=== PATIENT | male | born 1970 | race Caucasian/White ===

== ENCOUNTER 2017-07-19 17:03 | Emergency (ER) | payer MEDICAID ==
[~2017-07-19] VITALS: Ht 162.6 cm; Wt 89.8 kg
[~2017-07-19 17:03] MED LIST: METHOCARBAMOL500 M1 PO; MOTRIN600 M1 PO; PREDNISONE 20MG20 MG PO
[2017-07-19 17:10] VITALS: BP 140/88
--- NOTE | 2017-07-19 17:28 | Emergency Room Report ---
History of Present Illness Time Seen by 1727 Presenting Problem in Triage Pt arrived:Walked Presenting Problem:SENT PER SOFTWARE TEST AND VALIDATION ENGINEER FOR EVAL. PT STATES WAS SUPPOSED TO HAVE DIAGNOSTIC A1C DRAWN LAST WEEK AND "NEVER GOT AROUND TO IT". FSBS READS "HI". FAMILY HISTORY OF DM Onset of symptoms date/time:/ or onset unknown for:MEDICAL HX UNKNOWN Treatment Prior to Arrival: BOILER/CHILLER OPERATOR Provided by: Sepsis Risk Assessment: Temp: 97.8 B/P: 140/88 MAP: 105 Pulse: 92 Resp: 18 Recent fever? N Clinical Suspician of Infection? N Mental Status: 1 - Regular (Normal Baseline) Sepsis Risk:Low Sepsis Risk Have you (or family members/close friends) recently traveled outside the [place]? N If Yes, where/when: Have you had exposure to infectious disease within the past month? TB? Other? Specify: Comment The patient is sent in by Jamie Zimmerman due to an elevated blood sugar. It was too high to register on the Accu-Chek machine in the office. He complains of polyuria and polydipsia for 3 weeks. He has nausea. No prior history of diabetes. He is on no medications. He otherwise does not feel ill. ALLERGIES Coded Allergies: aspirin (Mild, 07/19/17) History Medical History General Angina: No PR: No Hypertension? No Hyperlipidemia? No CHF? No COPD? No Asthma? No CVA? No Seizures? No Diabetes? No GB Disease: No MRSA? No HIV? No TB? No Cancer? No Immunization Hx Ped.Immunizations UTD Yes DT/Tetanus T Surgical Hx Previous Surgery?N Social History Smoking Hx Smoker: Unknown if Ever Smoked Tobacco: Yes Type Chew Packs/day < 1 Pack Are you/the child exposed to second-hand smoke: No Alcohol Alcohol: No Review of Systems All Other Systems Reviewed and Negative Constitutional see HPI, denies fever Gastrointestinal nausea, denies vomiting Genitourinary frequency. Physical Exam Vital Signs Vital Signs Date Time Temp Pulse Resp B/P Pulse O2 O2 Flow FiO2 Ox Delivery Rate 07/19 1904 97.8 92 18 140/88 99 07/19 1710 97.8 92 18 140/88 99 General Appearance no apparent distress Eye Exam - bilateral eye normal exam, bilateral eye PERRL, bilateral eye EOMI Ear, Nose, Throat hearing grossly normal, normal ENT inspection Neck normal inspection, non-tender, supple, full range of motion Respiratory Status Yes: trachea midline, chest symmetrical. No: respiratory distress. Lung Sounds bilateral: normal breath sounds, lungs clear. Cardiovascular normal exam, regular rate/rhythm, no peripheral edema, no gallop, no JVD, no murmur, no rub, normal peripheral pulses Gastrointestinal normal bowel sounds, normal exam, non tender, soft, no organomegaly Extremities normal inspection Neurologic alert, oriented x 3 Mental status normal mood/affect Skin intact, normal color, warm/dry Medical Decision Making LABS/Meds/Orders Pt receiving controlled substance in ED? No Results/Orders Laboratory Tests 07/19/17 1739: VBG pH 7.38, VBG Total CO2 Pending, VBG O2 Sat (Calc) 97 H, VBG Base Excess - 1.9, Mixed VBG pCO2 40.0 L, Mixed VBG pO2 95.0 H, Mixed VBG HCO3 23.2 07/19/17 1720: Urine Color YELLOW, Urine Appearance CLEAR, Urine pH 5.5, Ur Specific Roscoe <= 1.005, Urine Protein NEGATIVE, Urine Ketones NEGATIVE, Urine Blood NEGATIVE, Urine Nitrate NEGATIVE, Urine Bilirubin NEGATIVE, Urine Urobilinogen 0.2, Ur Leukocyte Esterase NEGATIVE, Urine RBC NONE, Urine WBC OCC, Ur Squamous Epith Cells NONE, Urine Bacteria TRACE, Urine Glucose 3+ H 07/19/17 1715: Hemoglobin A1c 11.8 H 07/19/17 1715: Sodium 128 L, Potassium 4.5, Chloride 94 L, Carbon Dioxide 24, BUN 17, Creatinine 1.2, Estimated Creat Clear 99, Estimated GFR (MDRD) 65, Glucose 637 * H, Calcium 8.9, Total Bilirubin 0.3, AST 133 H, ALT 369 *H, Alkaline Phosphatase 251 H, Total Protein 8.0, Albumin 3.4, Globulin 4.6 H, Albumin/ Globulin Ratio 0.7 L, WBC 6.9, RBC 5.01, Hgb 14.1, Hct 45.7, MCV 91.2, RDW 13.0 , Plt Count 220, MPV 8.7, Gran % 71.3, Gran # 4.9, Lymphocytes % 22.3, Monocytes % 5.5, Eosinophils % 0.6, Basophils % 0.3, Lymphocytes # 1.5, Monocytes # 0.4, Eosinophils # 0.0, Basophils # 0.0, PUBS MCHC 30.8 L, MCH 28.1, Acetone Level NONE DETECTED Current Medication Orders Sig/Na Start time Last Medication Dose Route Stop Time Status Admin Diagnostic Test (Pha) 1 EACH W/MEALS&HS 07/19 2100 DCD FS 09/17 2059 Insulin Human [rDNA See Dose W/MEALS&HS 07/19 2100 DCD origin] Insts (1) SC Insulin Human [rDNA 0 .STK-MED ONE 07/19 1837 DC origin] SC Insulin Human [rDNA 0 .STK-MED ONE 07/19 1834 DC origin] SC Influenza Virus 0.5 ML PRN PRN 07/19 1830 DCD Vaccine Quadrival IM Nicotine 21 MG DAILYP PRN 07/19 1830 DCD TD Sodium Chloride 1,000 ML .Q6H40M 07/19 1830 DCD IV Sodium Chloride 10 ML PRN PRN 07/19 1830 DCD IV Insulin Human Regular 5 UNITS ONCE ONE 07/19 1815 DC IVP 07/19 181 Sodium Chloride 1,000 ML .STK-MED ONE 07/19 1716 DC IV Sodium Chloride 10 ML PRN PRN 07/19 171 DCD IV 07/20 171 Sodium Chloride 1,000 ML .Q1H1M 07/19 171 DC IV 07/19 181 Sodium Chloride 10 ML PRN PRN 07/19 171 DCD IV 07/20 171 Dose Instructions: (1)Insulin Human [rDNA origin]: SEE ADMIN CRITERIA FOR HI INTENSITY SS Orders Procedure Date/time Status DIET-1999 CALORIE ADA 07/20 B Active BASIC METABOLIC PROFILE 07/20 0600 Active Decision to admit 07/19 180 Active VENOUS BLOOD GAS 07/19 1718 Active IV SALINE LOCK 07/19 1714 Active URINALYSIS/COMPLETE 07/19 1714 Complete GLYCOHEMOGLOBIN (A1C) 07/19 1714 Complete GLUCOSE, RANDOM 07/19 1714 Complete CBC WITH AUTO DIFF 07/19 1714 Complete CHEM 12 PROFILE 07/19 1714 Complete Acetone, Serum 07/19 1714 Complete ADMIT PATIENT 07/19 UNK Active VITAL SIGNS 07/19 UNK Active POM NURSE CAMRON HOSE ORDER 07/19 UNK Active IV SALINE LOCK 07/19 UNK Active RECORD I & O 07/19 UNK Active CODE STATUS 07/19 UNK Active PATIENT ACTIVITY ORDER 07/19 UNK Active Progress - 6:00 PM: I have discussed the case with Dr. Hurley for Dr. Conteh who agrees to admit the patient to the hospital. We discussed the patient's clinical information, including history, exam, laboratory and radiology results and ED course. Per hospital procedure, I will write temporary bridge inpatient orders on the patient. Specific orders requested by the admitting physician: Regular insulin 5 units IV, admit on high-dose sliding scale insulin, continue IV fluids. 6:55 PM: After initially agreeing to admission, the patient now says that he cannot stay and will sign out AGAINST MEDICAL ADVICE. I contacted Dr. Hurley. He requests the patient be started on glimepiride 2 mg twice a day and metformin 500 mg twice a day and follow-up with his primary care provider within a couple of days. Departure Departure Disposition Against Medical Advice Clinical Impression Primary Impression: Hyperglycemia Secondary Impressions: Elevated liver enzymes, New onset type 2 diabetes mellitus Condition STABLE Patient Instructions DI for Diabetes Type 2, DI for Hyperglycemia -- Adult Additional Instructions Drink plenty of fluids. See your primary care provider within the next couple of days. Prescriptions Current Visit Scripts Glimepiride (Amaryl 2MG Tablet) 2 MG PO BID #20 TAB Metformin HCl (Metformin) 500 MG PO BID #20 TAB ED Critical Care Critical Care No at 1924
[2017-07-19 17:31] LABS: HEMOGLOBIN 14.1 g/dL (14.1-18.0); LYMPH # 1.5 K/mm3 (0.7-4.5); LYMPH % 22.3 % (10-50)
[2017-07-19 17:34] LABS: URINE BILIRUBIN - DIPSTICK NEGATIVE (NEG); URINE BLOOD NEGATIVE (NEG)
[2017-07-19 17:40] LABS: VENOUS ABE -1.9 MMOL/L (-2.4-2.3)
--- OUTSIDE RECORDS SUMMARY | 2017-07-19 17:44 | External Medical Summary Rpt | CCD ---
Author Author , YANA Organization YANA Address Unknown Phone [email or web address] Care Team Providers Care Social Science Teacher Name Role Phone CRISTOBAL ALL, CRISTOBAL ALL Unavailable Unavailable [facility] Unavailable Unavailable SERVICE, [employer] Unavailable Unavailable SERVICE, [employer], Unavailable Unavailable [facility] CHATTA SHEYLA, CHATTA Unavailable Unavailable SHEYLA CHATTA SHEYLA, CHATTA Unavailable Unavailable SHEYLA [facility] Unavailable Unavailable [facility], [facility] Unavailable AND REHA, [facility] ELIZABET MARGARET, Unavailable Unavailable ELIZABET MARGARET ECKERLINE JR SUNI, Unavailable Unavailable ECKERLINE JR SUNI FRYMAN EUG, FRYMAN Unavailable Unavailable EUG ANGEL GELACIO, ANGEL Unavailable Unavailable GELACIO [facility] Unavailable Unavailable INC, [facility], Unavailable Unavailable [facility]ERAS Unavailable Unavailable [facility] Unavailable Unavailable RENZO MORAIMA II KATIE, MORAIMA Unavailable Unavailable II KATIE [facility] Unavailable Unavailable [facility], [facility] Unavailable [facility], [facility] Unavailable Unavailable [facility], [facility] Unavailable [facility]available [facility]ANCE SERV, [employer] [facility] AYSHA SMITH, AYSHA Unavailable Unavailable JR SARAH SMITH, AYSHA Unavailable Unavailable JR SMITH [facility], Unavailable Unavailable [facility], Unavailable Unavailable [facility], [facility] CHERYL BIA, CHERYL Unavailable Unavailable [facility] SCHUL[facility]AD CAM, Unavailable Unavailable [facility] SCIFRES ANG, SCIFRES Unavailable Unavailable ANG SCIFRES AN[facility], SCIFRES Unavailable Unavailable [facility] STONE ESTRADA, STONE ESTRADA Unavailable Unavailable TRUE BERNARDO, TRUE BERNARDO Unavailable Unavailable [facility], Unavailable Unavailable [facility] Un[facility] # Unavailable Unavailable [id number], [facility] # [id number] WALKER FOR, WALKER Unavailable Unavailable FOR Purpose Continuity of Care Document - 11-23-2010 through 2016 Problems Code Diagnosis DOS Provider Status [id number] REGULAR 06-03-2016 SCIFRCHINMAY ANG ASTIGMATISM BILATERAL H524 PRESBYOPIA 06-03-2016 [facility] ANG M545 LOW BACK 01-18-2016 [facility] PAIN [facility] N62 HYPERTROPHY 12-15-2015 [facility] OF BREAST [facility] N63 UNSPECIFIED 12-09-2015 [facility] N644 MASTODYNIA 12-09-2015 [facility] [id number] OTH FX BASE 11-05-2015 [facility] SUBSQT ENC FX ROUTINE HEALING [id number] CONTUS LAC 11-05-2015 [facility] C[facility]OS[facility] LOC UNS DUR INIT [id number] OTH 10-07-2015 [facility] SKULL INIT ENC CLOSED FRACTURE [id number] UNS 10-07-2015 [facility] SK[facility] INITIAL ENC FOR CLOS FRACTURE [id number] TRAUMATIC 10-07-2015 [facility] HEM[facility] W/O LOC INITIAL M2019EV UNS OCC OTH 10-07-2015 [facility] [facility] MV INJ NT ACC INIT Z720 TOBACCO USE 10-07-2015 [facility] [id number] ABRASION 2015 [facility] OTHER PART PHYSICIANS OF HEAD GROUP INITIAL ENCOUNTER [id number] CONCUSSION 2015 [facility] W/LOC UNS PHYSICIANS DURATION GROUP INITIAL ENCOUNTER G8911 ACUTE PAIN 10-02-2015 [facility] TRAUMA SERVICE I6200 NONTRAUMATI 10-02-2015 [facility] HEMORRHAGE SERVICE UNSPECIFIED U31756 PAIN IN 10-02-2015 [facility] LEFT HAND [facility] M7989 OTHER 10-02-2015 [facility] SPECIFIED SERV SOFT TISSUE FOUNDATION DISORDERS R51 HEADACHE 10-02-2015 [facility] [id number] FRACTURE 10-02-2015 [facility] MEDICAL INITIAL IMAGING ASS ENC CLOS FRACTURE [id number] TRAUMAT 10-02-2015 [facility] UNS PLLC W/O LOC INITIAL [id number] TRAUMATIC 10-02-2015 [facility] HEM[facility] W/LOC 30 MIN/LESS INIT [id number] TRAUMATIC 10-02-2015 [facility] HEMORRHAGE IMAGING ASS W/LOC UNS DUR INIT Z23 ENCOUNTER 10-02-2015 [facility] [place] N [address] PAIN IN 06-03-2014 [facility]INT, N EMERGENCY SHOULDER PHYS REGION 73798 UNSPEC 06-03-2014 [facility] DISORDERS N EMERGENCY BURSAE&TEND PHYS ONS SHOULDER REGION 7231 CERVICALGIA 04-07-2014 [facility] 7235 TORTICOLLIS 04-07-2014 JARAMILLO RENZO , UNSPECIFIED 8470 NECK SPRAIN 04-07-2014 [facility] 89047 OLECRANON 02-28-2012 CHAT[facility] SHEYLA BURSITIS 7242 LUMBAGO 02-08-2012 AYSHA METCALF SARAH 96611 CONTUSION 02-08-2012 AYSHA METCALF OF [place] SARAH E9270 OVEREXERTIO 02-08-2012 AYSHA METCALF N FROM [facility] SUDDEN STRENUOUS MOVEMENT 32727 NAUSEA WITH 03-15-2011 [facility] 9779 POISONING 03-15-2011 [facility] UNSPECIFIED [facility] AMBULANCE DRUG/MEDICI SERV NAL SUBSTANCE 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 7244 THORACIC/DEONTE 02-09-2011 [facility] MBOSACRAL H SLEEP AND NEURITIS/RA REHA DICULITIS UNSPEC Medications Na ND Rx Da Fi Fi Am Da Di Ph RX Ph St me C No te ll ll ou ys ag ar # ys at rm s nt no ma ic us Or Da si cy ia de te s n re d CI 65 03 06 5 15 30 CA 10 MC Ac TA 16 -0 -2 .0 RR 70 CO ti LO 20 2- 9- 00 IN 88 Y ve MT 05 20 20 GT 4 SA AM 45 11 11 ON ND [address] D R UG 40 MG TA BL ET TR 50 03 06 5 30 30 CA 10 MC Ac AZ 11 -0 -2 .0 RR 70 CO ti OD 10 2- 9- 00 IN 88 Y ve ON 43 20 20 GT 7 SA E 40 11 11 ON ND [address] D MG UG TA BL ET MT 37 06 06 0 14 14 CA 10 Ac IL 00 -1 -1 .0 RR 90 HF ti OS 00 7- 7- 00 IN 73 AQ ve EC 45 20 20 GT 4 50 11 11 ON MU OT [address] MM 20 UG AD .6 MG TA BL ET ME 68 06 06 0 14 14 CA 10 Ac LO 38 -1 -1 .0 RR 90 HF ti XI 20 7- 7- 00 IN 73 AQ ve CA 05 20 20 GT 5 M 10 11 11 ON MU [address] MM MG UG AD TA BL ET TR 53 06 06 0 14 14 CA 10 Ac AZ 48 -1 -1 .0 RR 90 HF ti OD 90 7- 7- 00 IN 73 AQ ve ON 51 20 20 GT 6 E 70 11 11 ON MU [address] MM MG UG AD TA BL ET EF 00 06 06 0 14 14 CA 10 Ac FE 00 -1 -1 .0 RR 90 HF ti XO 80 7- 7- 00 IN 73 AQ ve R 83 20 20 GT 8 XR 62 11 11 ON MU [address] MM 0 UG AD MG CA PS UL E TR 50 03 05 5 30 30 CA 10 MC Ac AZ 11 -0 -2 .0 RR 70 CO ti OD 10 2- 5- 00 IN 88 Y ve ON 43 20 20 GT 7 SA E 40 11 11 ON ND [address] D MG UG TA BL ET MU 51 03 05 5 30 30 CA 10 MC Ac LT 99 -0 -2 .0 RR 70 CO ti IG 10 2- 5- 00 IN 88 Y ve EN 54 20 20 GT 8 SA 39 11 11 ON ND CA [address] D ET UG CI 65 03 05 5 15 30 CA 10 MC Ac TA 16 -0 -2 .0 RR 70 CO ti LO 20 2- 5- 00 IN 88 Y ve MT 05 20 20 GT 4 SA AM 45 11 11 ON ND [address] D R UG 40 MG TA BL ET 53 05 05 0 12 30 WA 22 JA Ac 74 -1 -1 0. L- 19 ME ti 60 1- 8- 00 MA 85 S ve 20 20 20 0 RT 5 II 50 11 11 1 PH OL AR IV MA ER CY C # 10 11 40 ME 54 05 05 0 30 30 WA 72 JA Ac LO 45 -1 -1 .0 L- 44 ME ti XI 80 1- 2- 00 MA 16 S ve CA 96 20 20 RT 7 II M 51 11 11 7. 0 PH OL 5 AR IV MG MA ER CY C TA # BL ET 10 11 40 ME 68 03 04 5 30 30 CA 10 MC Ac LO 38 -0 -0 .0 RR 70 CO ti XI 20 2- 1- 00 IN 88 Y ve CA 05 20 20 GT 3 SA M 00 11 11 ON ND 7. [address] D MG UG TA BL ET CI 65 03 04 5 15 30 CA 10 MC Ac TA 16 -0 -0 .0 RR 70 CO ti LO 20 2- 1- 00 IN 88 Y ve MT 05 20 20 GT 4 SA AM 45 11 11 ON ND [address] D R UG 40 MG TA BL ET TR 50 03 04 5 30 30 CA 10 MC Ac AZ 11 -0 -0 .0 RR 70 CO ti OD 10 2- 1- 00 IN 88 Y ve ON 43 20 20 GT 7 SA E 40 11 11 ON ND [address] D MG UG TA BL ET TR 65 03 03 1 18 30 CA 10 MC Ac AM 16 -0 -3 0. RR 70 CO ti AD 20 2- 1- 00 IN 88 Y ve OL 62 20 20 0 GT 5 SA 71 11 11 ON ND HC [address] D 50 UG MG TA BL ET ME 68 03 03 5 30 30 CA 10 MC Ac LO 38 -0 -0 .0 RR 70 CO ti XI 20 2- 2- 00 IN 88 Y ve CA 05 20 20 GT 3 SA M 00 11 11 ON ND 7. [address] D MG UG TA BL ET CI 65 03 03 5 15 30 CA 10 MC Ac TA 16 -0 -0 .0 RR 70 CO ti LO 20 2- 2- 00 IN 88 Y ve MT 05 20 20 GT 4 SA AM 45 11 11 ON ND [address] D R UG 40 MG TA BL ET TR 65 03 03 1 18 30 CA 10 MC Ac AM 16 -0 -0 0. RR 70 CO ti AD 20 2- 2- 00 IN 88 Y ve OL 62 20 20 0 GT 5 SA 71 11 11 ON ND HC [address] D 50 UG MG TA BL ET TR 50 03 03 5 30 30 CA 10 MC Ac AZ 11 -0 -0 .0 RR 70 CO ti OD 10 2- 2- 00 IN 88 Y ve ON 43 20 20 GT 7 SA E 40 11 11 ON ND [address] D MG UG TA BL ET MU 51 03 03 5 30 30 CA 10 MC Ac LT 99 -0 -0 .0 RR 70 CO ti IG 10 2- 2- 00 IN 88 Y ve EN 54 20 20 GT 8 SA 39 11 11 ON ND CA [address] D ET UG 00 02 02 0 12 30 NO 20 JA Ac 40 -2 -2 0. RT 01 ME ti 60 2- 2- 00 HV 09 S ve 58 20 20 0 IE II 20 11 11 W 1 PH OL AR IV MA ER CY C Immunization Name Date Rout CVX Reac Dose Comm Prov Is Faci e tion ent ider Refu lity Give sed n TDAP 01-0 115 PHILIPP No PHILIPP 1-20 HEENA HEENA VACC 16 [facility] INE 7 HOSP HOSP YRS/ INC INC > IM Procedures Procedure DOS Code Location Performer Comment OPH 31285 SCIFRES SCIFRES MEDICAL 6 ANG ANG XM&EVAL COMPRE NEW PT 1/> VST US BREAST 73986 [place] [facility] UNI REAL 6 MEDICAL MARGARET TIME IMAGING WITH ASS IMAGE LIMITED DIAGNOSTI G0204 [place] [facility] C 6 MEDICAL MARGARET MAMMOGRAP IMAGING HY INCL ASS CAD WHEN PERF; BILAT COMPUTER- 28958 [place] [facility] AIDED 6 MEDICAL MARGARET DETECTION IMAGING DX ASS MAMMOGRAP HY COMPREHEN 46434 [facility] SIVE 6 Y Y METABOLIC [facility] PANEL INFUSION J7030 [facility] NORMAL 6 Y Y SALINE [facility] SOLUTION [address] [place] [address] [facility] HEAD/BRAI 6 Y Y N W/O [facility] CONTRAST MATERIAL THROMBOPL 28264 [facility] ASTIN 6 Y Y TIME [facility] PARTIAL PLASMA/WH OLE BLOOD PROTHROMB 38043 [facility] IN TIME 6 Y Y [facility] BLOOD 91319 [facility] COUNT 6 Y Y COMPLETE [facility] AUTO&AUTO DIFRNTL WBC GLUC BLD 59404 [facility] GLUC MNTR 6 [facility] DEV INC INC CLEARED FDA SPEC HOME USE GROUND A0425 [facility] PER SERVICE SERVICE STATUTE MILE THER 96953 [facility] PROPH/DX 6 [facility] NJX IV INC INC PUSH SINGLE/1S T SBST/DRUG THERAPEUT 90966 [facility] IC 6 [facility] INJECTION INC INC IV PUSH EACH NEW DRUG RADEX 82947 [place] TRUE BERNARD[facility] HAND 6 MEDICAL MINIMUM 3 SERV VIEWS FOUNDATIO N IM ADM 02793 [facility] PRQ ID 6 [facility] SUBQ/IM INC INC NJXS 1 VACCINE AMB A0427 [facility] SERVICE 6 AMBULANCE AMBULANCE ALS SERVICE SERV[place] [address] [facility] CRISTOBAL ALL HEAD/BRAI 6 MEDICAL N W/O IMAGING CONTRAST ASS MATERIAL CRITICAL 74697 [facility] CARE 6 [facility] ILL/INJUR INC INC ED PATIENT INIT 30-74 MIN TDAP 36423 [facility] VACCINE 7 6 [facility] YRS/> IM INC INC RADEX 78216 [place] [facility] SHOULDER 4 MEDICAL MARGARET COMPLETE IMAGING MINIMUM 2 ASS VIEWS RADEX 77885 [facility] SPINE 4 [facility] CERVICAL INC INC 4 OR 5 VIEWS RADEX 30863 [facility] CHATTA ELBOW 2 2 SHEYLA SHEYLA VIEWS SMR PRIM 17128 JACQUELIN ROPER SRC 2 REGIONAL REGIONAL GRAM/GIEM MEDICAL MEDICAL SA STAIN CJ CORONA BCT FUNGI/EVELYN L ARTHROCEN 94229 JACQUELIN ROPER TESIS 2 REGIONAL REGIONAL ASPIR&/IN MEDICAL MEDICAL J INTERM CJ CORONA JT/BURS W/O US CUL BACT 28892 JACQUELIN ROPER XCPT 2 REGIONAL REGIONAL URINE MEDICAL MEDICAL BLOOD/STO JERRODKevin CORONA OL AEROBIC ISOL AMB A0427 [facility] SERVICE 1 Y CO Y CO ALS AMBULANCE AMBULANCE EMERGENCY SERV SERV TRANSPORT LEVEL 1 GROUND A0425 [facility] 1 Y CO Y CO PER AMBULANCE AMBULANCE [place]UTE SERV SERV [place] NJX 28457 COMMONWEEvelyn VALERA II DX/THER 1 LTH SLEEP KATIE SBST AND REHA EPIDURAL/ SUBARACH LUMBAR/SA CRAL FLUOR 44139 COMMONWEEvelyn VALERA II NEEDLE/CA 1 LTH SLEEP KATIE TH AND REHA SPINE/PAR ASPINAL DX/THER ADDON MODERATE 05630 [facility] VALERA II SEDATJ 1 LTH SLEEP KATIE SAME AND REHA PHYS/QHP 5/>YRS INIT 30 MIN Encounters Encounter Start End Date Code Location Performer Type Date OFFICE 74452 [facility] ANGEL OUTPATIEN 6 6 PHYSICIAN GELACIO T VISIT S GROUP 10 MINUTES OFFICE 47227 [facility] SHASHA OUTPATIEN 6 6 PHYSICIAN CAM T NEW 30 S GROUP MINUTES OFFICE 36116 [facility] YMMALLY OUTPATIEN 6 6 PHYSICIAN EUG T VISIT S GROUP 15 MINUTES OFFICE 28885 [facility] OUT[facility]I 6 6 Y T VISIT 5 HOSPITAL MINUTES HOSPITAL [facility] - 6 6 Y OUTPATI HOSPITAL T OFFICE 16379 [facility] 6 Y OF BIA T [facility] MIN[facility] HOSPI EMERGENCY 74402 [facility] DEPT 6 6 Y VISIT HOSPITAL HIGH SEVERITY& THREAT FUNCJ EMERGENCY 20414 [place] ECKER[place] 6 6 MEDICAL JR [facility] DEPARTMEN SERV T VISIT FOUNDATIO HIGH/URGE N NT SEVERITY HOSPITAL [facility] - 6 6 Y OUTPATI HOSPITAL T OFFICE 99061 [facility] SANDRA DORADO OUTPATIEN 6 6 PHYSICIAN T VISIT S GROUP 25 MINUTES HOSPITAL [facility] - 6 6 [facility] OUTPATIEN INC T EMERGENCY 13077 [facility] CRAIN DEPT 6 6 PHYSICIAN FOR VISIT S, PLLC HIGH SEVERITY& THREAT FUNCJ EMERGENCY 10700 [facility] 4 4 FELIPE GELACIO DEPARTMEN EMERGENCY T VISIT PHYS HIGH/URGE NT SEVERITY EMERGENCY 65037 [facility] 4 4 [facility] DEPARTMEN INC T VISIT LOW/MODER SEVERITY HOSPITAL [facility] - 4 4 [facility] OUTPATIEN INC T EMERGENCY 37825 [facility] 4 4 [facility] DEPARTMEN INC T VISIT LOW/MODER SEVERITY HOSPITAL [facility] - 4 4 [facility] OUTPATIEN INC T EMERGENCY 32651 [place] [facility] 4 4 [facility]ENZO MULLER [facility] T VISIT MODERATE SEVERITY OFFICE 23198 [facility] 2 2 SHEYLA SHEYLA T NEW 30 MINUTES [facility] JACQUELIN - 2 2 [facility] MEDICAL T [facility] EMERGENCY 23327 JACQUELIN 2 2 [facility] MEDICAL T VISIT CENT MODERATE SEVERITY EMERGENCY 11983 AYSHA OLMSTEAD JR 2 2 [facility] T VISIT HIGH/URGE NT SEVERITY OFFICE 12792 CINDY VALERA II OUTPATIEN 1 1 [facility] SLEEP KATIE T VISIT AND REHA 10 MINUTES OFFICE 83171 CINDY VALERA II OUTPATIEN 1 1 [facility] SLEEP KATIE T VISIT AND REHA 10 MINUTES
--- OUTSIDE RECORDS SUMMARY | 2017-07-19 17:44 | External Medical Summary Rpt | CCD ---
Author Author , YANA Organization YANA Address Unknown Phone [email or web address] Care Team Providers Care Dermatologist Name Role Phone CRISTOBAL ALL, CRISTOBAL ALL Unavailable Unavailable [facility] Unavailable Unavailable SERVICE, [facility] Unavailable Unavailable SERVICE, [facility], Unavailable Unavailable [facility] CHATTA SHEYLA, CHATTA Unavailable Unavailable SHEYLA CHATTA SHEYLA, CHATTA Unavailable Unavailable SHEYLA [facility] Unavailable Unavailable [facility], [facility]available Unavailable AND REHA, [facility] SLEEP AND REHA ELIZABET MARGARET, Unavailable Unavailable ELIZABET MARGARET ECKERLINE JR SUNI, Unavailable Unavailable ECKERLINE JR SUNI FRYMAN EUG, FRYMAN Unavailable Unavailable EUG ANGEL GELACIO, ANGEL Unavailable Unavailable GELACIO [facility] Unavailable Unavailable INC, [facility], Unavailable Unavailable [facility] Unavailable Unavailable [facility] Unavailable Unavailable RENZO MORAIMA II KATIE, MORAIMA Unavailable Unavailable II KATIE [facility] Unavailable Unavailable [facility], [facility] Un[facility] Unavailable Unavailable [facility], [facility] Unavailable Unavailable [facility], [facility] AYSHA SMITH, AYSHA Unavailable Unavailable JR SARAH SMITH, AYSHA Unavailable Unavailable JR SMITH [facility], Unavailable Unavailable [facility], Unavailable Unavailable PLLC, [facility] CHERYL BIA, CHERYL Unavailable Unavailable BIA [facility], Unavailable Unavailable [facility] SCIFRES ANG, SCIFRES Unavailable Unavailable ANG SCIFRES ANG, SCIFRES Unavailable Unavailable [facility] Un[facility] STONE ESTRADA, STONE ESTRADA Unavailable Unavailable TRUE BERNARDO, TRUE BERNARDO Unavailable Unavailable [facility], Unavailable Unavailable [facility] Unavailable [place] [facility] # Unavailable Unavailable [id number], [facility] # [id number] WALKER FOR, WALKER Unavailable Unavailable FOR Purpose Continuity of Care Document - 11-23-2010 through 2016 Problems Code Diagnosis DOS Provider Status [id number] REGULAR 06-03-2016 [facility] ANG ASTIGMATISM BILATERAL H524 PRESBYOPIA 06-03-2016 [facility] ANG M545 LOW BACK 01-18-2016 [facility] PA[facility] PHYSICIANS GROUP N62 HYPERTROPHY 12-15-2015 [facility] N63 UNSPECIFIED 12-09-2015 [facility] [facility] N644 MASTODYNIA 12-09-2015 [facility] [id number] OTH FX BASE 11-05-2015 [facility] SUBSQT ENC FX ROUTINE HEALING [id number] CONTUS LAC 11-05-2015 [facility] CEREBELLUM HOSPI LOC UNS DUR INIT [id number] OTH 10-07-2015 [facility] SKULL INIT ENC CLOSED FRACTURE B5991VQ UNS 10-07-2015 [facility] INITIAL ENC FOR CLOS FRACTURE [id number] TRAUMATIC 10-07-2015 [facility] W/O LOC INITIAL [id number] UNS OCC OTH 10-07-2015 [facility] MV INJ NT ACC INIT Z720 TOBACCO USE 10-07-2015 [facility] [id number] ABRASION 2015 [facility] OTHER PART PHYSICIANS OF HEAD GROUP INITIAL ENCOUNTER [id number] CONCUSSION 2015 [facility] W/LOC UNS PHYSICIANS DURATION GROUP INITIAL ENCOUNTER G8911 ACUTE PAIN 10-02-2015 [facility] D[facility] TO [facility] TRAUMA SERVICE I6200 NONTRAUMATI 10-02-2015 [facility] HEMORRHAGE SERVICE UNSPECIFIED I15775 PAIN IN 10-02-2015 [facility] M7989 OTHER 10-02-2015 [facility] SPECIFIED SERV SOFT TISSUE FOUNDATION DISORDERS R51 HEADACHE 10-02-2015 [facility] K472LNI FRACTURE 10-02-2015 [facility] INITIAL IMAGING ASS ENC CLOS FRACTURE [id number] TRAUMAT 10-02-2015 [facility], CEREB UNS PLLC W/O LOC INITIAL A255P0U TRAUMATIC 10-02-2015 [facility] HEMORR INC W/LOC 30 MIN/LESS INIT [id number] TRAUMATIC 10-02-2015 [facility]EMOR[facility]AG[facility] ASS W/LOC UNS DUR INIT Z23 ENCOUNTER 10-02-2015 [facility] [place]AT[place] INC N 96629 PAIN IN 06-03-2014 [facility] JOINT, N EMERGENCY SHOULDER PHYS REGION 01403 UNSPEC 06-03-2014 [facility] DISORDERS N EMERGENCY BURSAE&TEND PHYS ONS SHOULDER REGION 7231 CERVICALGIA 04-07-2014 [facility] IMAGING ASS 7235 TORTICOLLIS 04-07-2014 JARAMILLO RENZO , UNSPECIFIED 8470 NECK SPRAIN 04-07-2014 [facility] 32596 OLECRANON 02-28-2012 CHATTA SHEYLA BURSITIS 7242 LUMBAGO 02-08-2012 AYSHA METCALF SARAH 42131 CONTUSION 02-08-2012 AYSHA METCALF OF [place] SAR[place] E9270 OVEREXERTIO 02-08-2012 AYSHA METCALF N FROM [facility] SUDDEN STRENUOUS MOVEMENT 90201 NAUSEA WITH 03-15-2011 [facility] SERV 9779 POISONING 03-15-2011 [facility] UNSPECIFIED CO AMBULANCE DRUG/MEDICI SERV NAL SUBSTANCE 04792 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 [facility] LUMBAR/LUMB H SLEEP AND [...] 2- 9- 00 IN 88 Y ve ID 05 20 20 GT 4 SA AM [...] DR D MG UG TA BL ET ID 37 06 06 0 14 14 CA [...] 2- 5- 00 IN 88 Y ve ID 05 20 20 GT 4 SA AM [...] 2- 1- 00 IN 88 Y ve ID 05 20 20 GT 4 SA AM [...] 2- 2- 00 IN 88 Y ve ID 05 20 20 GT 4 SA AM [...] Procedure DOS Code Location Performer Comment OPH 26930 SCIFRES SCIFRES MEDICAL 6 ANG ANG XM&EVAL COMPRE NEW PT 1/> VST US BREAST 45051 [place] [facility] UNI REAL 6 MEDICAL MARGARET TIME IMAGING WITH ASS IMAGE LIMITED DIAGNOSTI G0204 [place] [facility] C 6 MEDICAL MARGARET MAMMOGRAP IMAGING HY INCL ASS CAD WHEN PERF; BILAT COMPUTER- 97424 [place] [facility] AIDED 6 MEDICAL MARGARET DETECTION IMAGING DX ASS MAMMOGRAP HY COMPREHEN 11750 [facility] SIVE 6 Y [facility] PANEL INFUSION J7030 [facility] NORMAL 6 Y Y SALINE [facility] SOL[place] [address] [place] [address] [facility] HEAD/BRAI 6 Y Y N W/O [facility] CONTRAST MATERIAL THROMBOPL 75216 [facility] ASTIN 6 Y Y TIME [facility] PARTIAL PLASMA/WH OLE BLOOD PROTHROMB 33791 [facility] IN TIME 6 Y Y [facility] BLOOD 75487 [facility] COUNT 6 Y Y COMPLETE [facility] AUTO&AUTO DIFRNTL WBC GLUC BLD 96781 [facility] GLUC MNTR 6 [facility] H[facility] DEV INC INC CLEARED FDA SPEC HOME USE GROUND A0425 [facility] AMBULANCE AMBULANCE PER SERVICE SERVICE STATUTE MILE THER 67821 [facility] PROPH/DX 6 [facility] NJX IV INC INC PUSH SINGLE/1S T SBST/DRUG THERAPEUT 46628 [facility] IC 6 [facility] INJECTION INC INC IV PUSH EACH NEW DRUG RADEX 17177 [place] TRUE BERNARDO HAND 6 MEDICAL MINIMUM 3 SERV VIEWS FOUNDATIO N IM ADM 03590 [facility] PRQ ID 6 [facility] SUBQ/IM INC INC NJXS 1 VACCINE AMB A0427 ADALBERTO [facility] SERVICE 6 AMBULANCE AMBULANCE ALS SERVICE SERVICE [place] [address] [place] [address] [facility] CITYCos[facility] CRISTOBAL ALL HEAD/BRAI 6 MEDICAL N W/O IMAGING CONTRAST ASS MATERIAL CRITICAL 00539 [facility] CARE 6 [facility] ILL/INJUR INC INC ED PATIENT INIT 30-74 MIN TDAP 61199 [facility] VACCINE 7 6 [facility] YRS/> IM INC INC RADEX 40058 [place] [facility] SHOULDER 4 MEDICAL MARGARET COMPLETE IMAGING MINIMUM 2 ASS VIEWS RADEX 31077 [facility] SPINE 4 [facility]OS[facility] CERVICAL INC INC 4 OR 5 VIEWS RADEX 14440 CHATTA CHATTA ELBOW 2 2 SHEYLA SHEYLA VIEWS SMR PRIM 27923 JACQUELIN ROPER SRC 2 REGIONAL REGIONAL GRAM/GIEM MEDICAL MEDICAL SA STAIN CJ CORONA BCT FUNGI/EVELYN L ARTHROCEN 07852 JACQUELIN ROPER TESIS 2 REGIONAL REGIONAL ASPIR&/IN MEDICAL MEDICAL J INTERM CJ CORONA JT/BURS W/O US CUL BACT 95554 JACQUELIN ROPER XCPT 2 REGIONAL REGIONAL URINE MEDICAL MEDICAL BLOOD/STO JERRODKevin CORONA OL AEROBIC ISOL AMB A0427 [facility] SERVICE 1 Y CO Y CO ALS AMBULANCE AMBULANCE EMERGENCY SERV SERV TRANSPORT LEVEL 1 GROUND A0425 [facility] Y CO PER AMBULANCE AMBULANCE STATUTE SERV SERV MILE NJX 99369 COMMONWEEvelyn VALERA II DX/THER 1 LTH SLEEP KATIE SBST AND REHA EPIDURAL/ SUBARACH LUMBAR/SA CRAL FLUOR 83223 COMMONWEEvelyn VALERA II NEEDLE/CA 1 LTH SLEEP KATIE TH AND REHA SPINE/PAR ASPINAL DX/THER ADDON MODERATE 96046 [place]OR[place] VALERA II SEDATJ 1 LTH SLEEP KATIE SAME AND REHA PHYS/QHP 5/>YRS INIT 30 MIN Encounters Encounter Start End Date Code Location Performer Type Date OFFICE 73692 [facility] ANGEL OUTPATIEN 6 6 PHYSICIAN GELACIO T VISIT S GROUP 10 MINUTES OFFICE 99860 [facility] SHASHA OUTPATIEN 6 6 PHYSICIAN CAM T NEW 30 S GROUP MINUTES OFFICE 09472 [facility] YMMALLY OUTPATIEN 6 6 PHYSICIAN EUG T VISIT S GROUP 15 MINUTES OFFICE 00093 [facility] OUTPATI 6 6 Y T VISIT 5 HOSPITAL MINUTES HOSPITAL UNIVERSIT - 6 6 Y OUTPATI HOSPITAL T OFFICE 01205 [facility] 6 6 Y OF BIA T JD [facility] MINUTES HOSPI EMERGENCY 72505 UNIVERS[facility] DEPT 6 6 Y VISIT HOSPITAL HIGH SEVERITY& THREAT FUNCJ EMERGENCY 69119 [place] ECKERLINE 6 6 MEDICAL JR [facility] DEPARTMEN SERV T VISIT FOUNDATIO HIGH/URGE N NT SEVERITY HOSPITAL UNIVERSIT - 6 6 Y OUTPATI HOSPITAL T OFFICE 29921 [facility] SANDRA DORADO OUTPATIEN 6 6 PHYSICIAN T VISIT S GROUP 25 MINUTES HOSPITAL [facility] - 6 6 MEM H[facility] OUTPATIEN INC T EMERGENCY 95562 [facility] CRAIN DEPT 6 6 PHYSICIAN FOR VISIT S, PLLC HIGH SEVERITY& THREAT FUNCJ EMERGENCY 54871 [facility] 4 4 FELIPE GELACIO DEPARTMEN EMERGENCY T VISIT PHYS HIGH/URGE NT SEVERITY EMERGENCY 84333 [facility] 4 4 [facility] DEPARTMEN INC T VISIT LOW/MODER SEVERITY HOSPITAL [facility] - 4 4 [facility] OUTPATIEN INC T EMERGENCY 64914 [facility] 4 4 [facility] DEPARTMEN INC T VISIT LOW/MODER SEVERITY HOSPITAL [facility] - 4 4 [facility] OUTPATIEN INC T EMERGENCY 63680 [facility] JAARMILLO 4 4 RENZO MULLER [facility] T VISIT MODERATE SEVERITY OFFICE 67852 [facility] 2 2 SHEYLA SHEYLA T NEW 30 MINUTES [facility] JACQUELIN - 2 2 [facility] MEDICAL T [facility] EMERGENCY 57381 JACQUELIN 2 2 [facility] MEDICAL T VISIT CENT MODERATE SEVERITY EMERGENCY 94308 AYSHA OLMSTEAD JR 2 2 [facility] T VISIT HIGH/URGE NT SEVERITY OFFICE 96051 CINDY VALERA II OUTPATIEN 1 1 [facility] SLEEP KATIE T VISIT AND REHA 10 MINUTES OFFICE 04868 CINDY VALERA II OUTPATIEN 1 1 [facility] SLEEP KATIE T VISIT AND REHA 10 MINUTES
[2017-07-19 17:46] LABS: BUN 17 mg/dL (7-18); GFR (ESTIMATED) 65 ML/MIN (>60)
--- OUTSIDE RECORDS SUMMARY | 2017-07-19 17:46 | External Medical Summary Rpt | CCD ---
Demographics Preferred Language Fijian Marital Status Unknown Congregation Affiliation Unknown Race Unknown Ethnic Group Unknown Author Author , YANA MILLAN Address Unknown Phone Immunization No patient found.
--- OUTSIDE RECORDS SUMMARY | 2017-07-19 17:46 | External Medical Summary Rpt | CCD ---
Author Author , YANA Organization YANA Address Unknown Phone [email or web address] Care Team Providers Care Warp Clamper Name Role Phone [facility] Unavailable Unavailable SERVICE, [facility]available Unavailable SERVICE, [facility], Unavailable Unavailable [facility] CHATTA SHEYLA, CHATTA Unavailable Unavailable SHEYLA CHATTA SHEYLA, CHATTA Unavailable Unavailable SHEYLA [facility] Unavailable Unavailable [facility], [facility] SLEEP Unavailable Unavailable AND REHA, [facility] SLEEP AND REHA ELIZABET MARGARET, Unavailable Unavailable ELIZABET MARGARET ECKERLINE SUNI, Unavailable Unavailable ECKERLINE JR SUNI FRYMAN EUG, FRYMAN Unavailable Unavailable EUG ANGEL GELACIO, ANGEL Unavailable Unavailable GELACIO [facility] Unavailable Unavailable INC, [facility], Unavailable Unavailable [facility] T[facility]ERAS Unavailable Unavailable [facility] Unavailable Unavailable RENZO MORAIMA II KATIE, MORAIMA Unavailable Unavailable II KATIE [facility] Unavailable Unavailable [facility], [facility] Unavailable Unavailable [facility], [facility] [employer] Unavailable Unavailable AMBULANCE SERV, [facility] [employer] Unavailable Unavailable AMBULANCE SERV, [employer] [facility] AYSHA SANTOS JR Unavailable Unavailable AYSHA DONG JR Unavailable Unavailable JR SMITH [facility], Unavailable Unavailable [facility], Unavailable Unavailable PLLC, [facility] CHERYL BIA, CHERYL Unavailable Unavailable BIA SCHULSTAD CAM, Unavailable Unavailable SCHULSTAD CAM SCIFRES ANG, SCIFRES Unavailable Unavailable ANG SCIFRES ANG, SCIFRES Unavailable Unavailable [facility] Unavailable Unavailable [facility], [facility] STONE ESTRADA, STONE ESTRADA Unavailable Unavailable TRUE BERNARDO, TRUE BERNARDO Unavailable Unavailable [facility], Unavailable Unavailable [facility] Unavailable [facility], [facility] KINA SUNI, KINA Unavailable Unavailable SUNI [facility] # Unavailable Unavailable [id number], [facility] # [id number] WALKER FOR, WALKER Unavailable Unavailable FOR Purpose Continuity of Care Document - 11-23-2010 through 2016 Problems Code Diagnosis DOS Provider Status [id number] REGULAR 06-03-2016 [facility] ANG ASTIGMATISM BILATERAL H524 PRESBYOPIA 06-03-2016 [facility] ANG M545 LOW BACK 01-18-2016 [facility] PAIN PHYSICIANS GROUP N62 HYPERTROPHY 12-15-2015 [facility] OF BREAST PHYSICIANS GROUP N63 UNSPECIFIED 12-09-2015 [facility] N644 MASTODYNIA 12-09-2015 [facility] [id number] OTH FX BASE 11-05-2015 [facility] SUBSQT ENC FX ROUTINE HEALING P22496S CONTUS LAC 11-05-2015 [facility] CEREBELLUM HOSPI LOC UNS DUR INIT E5804QK OTH 10-07-2015 [facility] SKULL INIT ENC CLOSED FRACTURE [id number] UNS 10-07-2015 [facility] INITIAL ENC FOR CLOS FRACTURE I992Y7G TRAUMATIC 10-07-2015 [facility] HEMORRHAGE W/O LOC INITIAL T9767LZ UNS OCC OTH 10-07-2015 [facility] MV INJ NT ACC INIT Z720 TOBACCO USE 10-07-2015 [facility] B3820NI ABRASION 2015 [facility] OTHER PART PHYSICIANS OF HEAD GROUP INITIAL ENCOUNTER W695S9J CONCUSSION 2015 [facility] W/LOC UNS PHYSICIANS DURATION GROUP INITIAL ENCOUNTER G8911 ACUTE PAIN 10-02-2015 [facility] DUE TO [facility]BULANCE TRAUMA SERVICE I6200 NONTRAUMATI 10-02-2015 [facility] C [facility]BDURAL [facility] HEMORRHAGE SERVICE UNSPECIFIED F98400 PAIN IN 10-02-2015 [facility] M7989 OTHER 10-02-2015 [facility] SPECIFIED SERV SOFT TISSUE FOUNDATION DISORDERS R51 HEADACHE 10-02-2015 [facility] N846WLN FRACTURE 10-02-2015 [place] [facility] MEDICAL INITIAL IMAGING ASS ENC CLOS FRACTURE L12247S TRAUMAT 10-02-2015 [facility], CEREB UNS PLLC W/O LOC INITIAL Q500K7Z TRAUMATIC 10-02-2015 [facility] HEMORR INC W/LOC 30 MIN/LESS INIT P364K1O TRAUMATIC 10-02-2015 [place] [facility] HEMORRHAGE IMAGING ASS W/LOC UNS DUR INIT Z23 ENCOUNTER 10-02-2015 [facility] IMMUNIZATIO INC N 84223 PAIN IN 06-03-2014 [facility] JOINT, N EMERGENCY SHOULDER PHYS REGION 19826 UNSPEC 06-03-2014 [facility] DISORDERS N EMERGENCY BURSAE&TEND PHYS ONS SHOULDER REGION 7231 CERVICALGIA 04-07-2014 [facility] 7235 TORTICOLLIS 04-07-2014 JARAMILLO RENZO , UNSPECIFIED 8470 NECK SPRAIN 04-07-2014 [facility] 44616 OLECRANON 02-28-2012 CHATTA SHEYLA BURSITIS 7242 LUMBAGO 02-08-[address] [facility] 25785 CONTUSION 02-08-2012 AYSHA METCALF OF [place] SAR[place] E9270 OVEREXERTIO 02-08-2012 AYSHA MET[address] N FROM [facility] SUDDEN STRENUOUS MOVEMENT 75067 NAUSEA WITH 03-15-2011 [facility] VOMITING [facility] AM[facility]ANCE SERV 9779 POISONING 03-15-2011 M[facility] UNSPECIFIED CO AMBULANCE DRUG/MEDICI SERV NAL SUBSTANCE 38268 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 [facility] LUMBAR/LUMB H SLEEP AND [...] 2- 9- 00 IN 88 Y ve HI 05 20 20 GT 4 SA AM [...] DR D MG UG TA BL ET HI 37 06 06 0 14 14 CA [...] UG AD MG CA PS UL E CI 65 03 05 5 15 30 CA 10 MC Ac TA 16 -0 -2 .0 RR 70 CO ti LO 20 2- 5- 00 IN 88 Y ve HI 05 20 20 GT 4 SA AM 45 11 11 ON ND [address] D R UG 40 MG TA BL ET TR 50 03 05 5 30 30 [...] [address] D ET UG 53 05 05 0 12 30 WA [...] 2- 1- 00 IN 88 Y ve HI 05 20 20 GT 4 SA AM [...] 2- 2- 00 IN 88 Y ve HI 05 20 20 GT 4 SA AM [...] Procedure DOS Code Location Performer Comment OPH 05784 [facility] 6 ANG ANG XM&EVAL COMPRE NEW PT 1/> VST BREAST 29713 [place] [facility] UN[facility] REAL 6 MEDICAL MARGARET TIME IMAGING WITH ASS IMAGE LIMITED COMPUTER- 10484 [place] [facility]ABET AIDED 6 MEDICAL MARGARET DETECTION IMAGING DX ASS MAMMOGRAP HY DIAGNOSTI G0204 [place] [facility] C 6 MEDICAL MARGARET MAMMOGRAP IMAGING HY INCL ASS CAD WHEN PERF; BILAT INFUSION J7030 [facility] NORMAL 6 Y Y SALINE [facility] SOLUTION 1000 CC BLOOD 39544 [facility] COUNT 6 Y Y COMPLETE [facility] AUTO&AUTO DIFRNTL WBC COMPREHEN 97044 [facility] SIVE Y Y [facility] PANEL PROTHROMB 59520 [facility] IN TIME Y Y [facility] THROMBOPL 32905 [facility] ASTIN 6 Y Y TIME [facility] PARTIAL PLASMA/[place] [address] PAR[facility] HEAD/BRAI 6 MEDICAL SUNI N W/[place] [address] [facility] HEAD/BRAI 6 [facility] N W/O INC INC CONTRAST MATERIAL CRITICAL 31020 [facility] CARE 6 [facility] ILL/INJUR INC INC ED PATIENT INIT 30-74 MIN THER 32658 [facility] PROPH/DX 6 [facility] NJX IV INC INC PUSH SINGLE/1S T SBST/DRUG IM ADM 34434 [facility] PRQ ID 6 [facility] SUBQ/IM INC INC NJXS 1 VACCINE RADEX 61126 [place] TRUE BERNARD[place] HAND 6 MEDICAL MINIMUM 3 SERV VIEWS FOUNDATIO N TDAP 65395 [facility] VACCINE 7 6 [facility] YRS/> IM INC INC GLUC BLD 09914 [facility] GLUC MNTR 6 [facility] DEV INC INC CLEARED FDA SPEC HOME USE AMB A0427 [facility] SERVICE 6 AMBULANCE AMBULANCE ALS SERVICE SERVICE EMERGENCY TRANSPORT LEVEL 1 GROUND A0425 [facility] AMBULANCE PER SERVICE SERVICE STATUTE MILE THERAPEUT 16079 [facility] IC 6 [facility] INJECTION INC INC IV PUSH EACH NEW DRUG RADEX 36163 [facility] EL[facility]ET SHOULDER 4 MEDICAL MARGARET COMPLETE IMAGING MINIMUM 2 ASS VIEWS RADEX 96884 [place] [facility] SPINE 4 MEDICAL MARGARET CERVICAL IMAGING 4 OR 5 ASS VIEWS RADEX 41143 CHATTA CHATTA ELBOW 2 2 SHEYLA SHEYLA VIEWS SMR PRIM 08179 JACQUELIN ROPER SRC 2 REGIONAL REGIONAL GRAM/GIEM MEDICAL MEDICAL SA STAIN [facility] BCT FUNGI/EVELYN L CUL BACT 52473 JACQUELIN ROPER XCPT 2 REGIONAL REGIONAL URINE MEDICAL MEDICAL BLOOD/STO [facility] OL AEROBIC ISOL ARTHROCEN 22772 JACQUELIN ROPER TESIS 2 REGIONAL REGIONAL ASPIR&/IN MEDICAL MEDICAL J INTERM [facility] JT/BURS W/O US AMB A0427 [facility] SERVICE 1 Y CO Y CO ALS AMBULANCE AMBULANCE EMERGENCY SERV SERV TRANSPORT LEVEL 1 GROUND A0425 [facility] Y CO Y CO PER AMBULANCE AMBULANCE STATUTE SERV SERV MILE FLUOR 31250 CINDY VALERA II NEEDLE/CA 1 LTH SLEEP KATIE TH AND REHA SPINE/PAR ASPINAL DX/THER ADDON NJX 89623 CINDY VALERA II DX/THER 1 LTH SLEEP KATIE SBST AND REHA EPIDURAL/ SUBARACH LUMBAR/SA CRAL MODERATE 49264 CINDY VALERA II SEDATJ 1 LTH SLEEP KATIE SAME AND REHA PHYS/QHP 5/>YRS INIT 30 MIN Encounters Encounter Start End Date Code Location Performer Type Date OFFICE 11102 [facility] ANGEL OUTPATIEN 6 6 PHYSICIAN GELACIO T VISIT S GROUP 10 MINUTES OFFICE 78411 [facility] SHASHA OUTPATIEN 6 6 PHYSICIAN CAM T NEW 30 S GROUP MINUTES OFFICE 57782 [facility] JAIME OUTPATIEN 6 6 PHYSICIAN EUG T VISIT S GROUP 15 MINUTES OFFICE 73543 [facility] 6 6 Y OF BIA T [place] MINUTES [facility] UNIVERSIT - 6 6 Y [facility] T OFFICE 85941 [facility] 6 6 Y T VISIT 5 HOSPITAL MINUTES EMERGENCY 34659 [place] ECKERLINE 6 6 MEDICAL [facility] DEPARTMEN SERV T VISIT FOUNDATIO HIGH/URGE N NT SEVERITY EMERGENCY 96682 UNIVERSIT DEPT 6 6 Y VISIT HOSPITAL HIGH SEVERITY& THREAT [facility] UNIVERSIT [facility] 6 6 [facility] T OFF[facility] 77230 [facility] SANDRA DORADO OUTPATIEN 6 6 PHYSICIAN T VISIT S GROUP 25 MINUTES EMERGENCY 25959 JENNIFER CRAIN DEPT 6 6 PHYSICIAN FOR VISIT S, [facility] HIGH SEVERITY& THREAT [facility] ROBERT - 6 6 [facility] OUTPATIEN INC T EMERGENCY 75241 [facility] 4 4 [facility] DEPARTMEN INC T VISIT LOW/MODER SEVERITY [facility]OS[facility] - 4 4 [facility] T EMERGENCY 64549 [facility] ANGEL 4 4 FELIPE GELACIO DEPARTMEN EMERGENCY T VISIT PHYS HIGH/URGE NT SEVERITY EMERGENCY 11965 [facility] JARAM[facility] 4 4 RENZO MULLER DEPARTMEN T VISIT MODERATE SEVERITY EMERGENCY 65328Tamiko JONES 4 4 [facility] DEPART[facility] INC T VISIT LOW/MODER SEVERITY [facility]OSPITAL ROBERT - 4 4 [facility] OUTPATIEN INC T OFFICE 00128 [facility] SHEYLA SHEYLA T NEW 30 MINUTES EMERGENCY 77703 JACQUELIN 2 2 [facility] MEDICAL T VISIT CENT MODERATE SEVERITY [facility] JACQUELIN - [address] [facility] EMERGENCY 66154 AYSHA OLMSTEAD JR 2 2 [facility] T VISIT HIGH/URGE NT SEVERITY OFFICE 21519 CINDY VALERA II OUTPATIEN 1 1 [facility] SLEEP [facility]ATIE T VISIT AND REHA 10 MINUTES OFFICE 63584 CINDY VALERA II OUTPATIEN 1 1 [facility] T VISIT AND REHA 10 MINUTES
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
--- OUTSIDE RECORDS SUMMARY | 2017-07-19 17:46 | External Medical Summary Rpt | CCD ---
Demographics Preferred Language Jordanian Marital Status Unknown Buddhist Affiliation Unknown Race Unknown Ethnic Group Unknown Author Author , YANA MILLAN Address Unknown Phone Immunization No patient found.
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
--- OUTSIDE RECORDS SUMMARY | 2017-07-19 18:09 | External Medical Summary Rpt | CCD ---
Author Author , YANA Organization YANA Address Unknown Phone [email or web address] Care Team Providers Care Logistics Lead Name Role Phone [facility] Unavailable Unavailable SERVICE, [facility] Unavailable Unavailable SERVICE, [facility], Unavailable Unavailable [facility] CHATTA SHEYLA, CHATTA Unavailable Unavailable SHEYLA CHATTA SHEYLA, CHATTA Unavailable Unavailable SHEYLA [facility] Unavailable Unavailable MEDICAL [facility]ENT[facility], [facility]available Unavailable AND REHA, [facility] ELIZABET MARGARET, Unavailable Unavailable ELIZABET MARGARET ECKERLINE JR SUNI, Unavailable Unavailable ECKERLINE JR SUNI FRYMAN EUG, FRYMAN Unavailable Unavailable EUG ANGEL GELACIO, ANGEL Unavailable Unavailable GELACIO [facility] Unavailable Unavailable INC, [facility], Unavailable Unavailable [facility] Unavailable Unavailable [facility] Unavailable Unavailable RENZO MORAIMA II KATIE, MORAIAM Unavailable Unavailable II KATIE [facility] Unavailable Unavailable [facility], [facility] Un[facility], [facility] [employer] Unavailable Unavailable [facility]ANCE [facility], [facility] Unavailable [facility]available [facility], [facility] AYSHA SMITH, AYSHA Unavailable Unavailable JR SARAH SMITH, AYSHA Unavailable Unavailable JR SMITH [facility], Unavailable Unavailable [facility], Unavailable Unavailable PLLC, [facility] CHERYL BIA, CHERYL Unavailable Unavailable BIA [facility], Unavailable Unavailable [facility] SCIFRES ANG, SCIFRES Unavailable Unavailable ANG SCIFRES ANG, SCIFRES Unavailable Unavailable [facility] STONE ESTRADA, STONE ESTRADA Unavailable Unavailable TRUE BERNARDO, TRUE BERNARDO Unavailable Unavailable [facility], Unavailable Unavailable [facility] Unavailable [facility], [facility] KINA SUNI, KINA Unavailable Unavailable SUNI [facility] # Unavailable Unavailable [id number], [facility] # [id number] WALKER FOR, WALKER Unavailable Unavailable FOR Purpose Continuity of Care Document - 11-23-2010 through 2016 Problems Code Diagnosis DOS Provider Status [id number] REGULAR 06-03-2016 [facility] ANG ASTIGMATISM BILATERAL H524 PRESBYOPIA 06-03-2016 SCIFRCHINMAY ANG M545 LOW BACK 01-18-2016 [facility] PAIN PHYSICIANS GROUP N62 HYPERTROPHY 12-15-2015 [facility] PHYSICIANS GROUP N63 UNSPECIFIED 12-09-2015 [facility] [facility] N644 MASTODYNIA 12-09-2015 [facility] [id number] OTH FX BASE 11-05-2015 [facility] SUBSQT ENC FX ROUTINE HEALING [id number] CONTUS LAC 11-05-2015 [facility]OS[facility] LOC UNS DUR INIT [id number] OTH 10-07-2015 [facility] BASE SKULL INIT ENC CLOSED FRACTURE [id number] UNS 10-07-2015 [place] [facility] SERV SKULL FOUNDATION INITIAL ENC FOR CLOS FRACTURE [id number] TRAUMATIC 10-07-2015 [facility] HEMORRHAGE W/O LOC INITIAL [id number] UNS OCC OTH 10-07-2015 [facility] MV INJ NT ACC INIT Z720 TOBACCO USE 10-07-2015 [facility] [id number] ABRASION 2015 [facility] OTHER PART PHYSICIANS OF HEAD GROUP INITIAL ENCOUNTER [id number] CONCUSSION 2015 [facility] W/LOC UNS PHYSICIANS DURATION GROUP INITIAL ENCOUNTER G8911 ACUTE PAIN 10-02-2015 [facility] D[facility] TO [facility] TRAUMA SERVICE I6200 NONTRAUMATI 10-02-2015 [facility] HEMORRHAGE SERVICE UNSPECIFIED U33850 PAIN IN 10-02-2015 [place] [facility] LEFT [facility] M7989 OTHER 10-02-2015 [place] [facility] SPECIFIED SERV SOFT TISSUE FOUNDATION DISORDERS R51 HEADACHE 10-02-2015 [facility] [id number] FRACTURE 10-02-2015 [place] [facility]ICAL INITIAL IMAGING ASS ENC CLOS FRACTURE [id number] TRAUMAT 10-02-2015 [facility], C[facility] UNS PLLC W/O LOC INITIAL H131R7F TRAUMATIC 10-02-2015 [facility] HEMORR INC W/LOC 30 MIN/LESS INIT [id number] TRAUMATIC 10-02-2015 [place] [facility] ASS W/LOC UNS DUR INIT Z23 ENCOUNTER 10-02-2015 [facility] [place] N 23470 PAIN IN 06-03-2014 [facility] JOINT, N EMERGENCY SHOULDER PHYS REGION 21261 UNSPEC 06-03-2014 [facility] DISORDERS N EMERGENCY BURSAE&TEND PHYS ONS SHOULDER REGION 7231 CERVICALGIA 04-07-2014 [facility] 7235 TORTICOLLIS 04-07-2014 JARAMILLO RENZO , UNSPECIFIED 8470 NECK SPRAIN 04-07-2014 [facility] 74309 OLECRANON 02-28-2012 CHATTA SHEYLA BURSITIS 7242 LUMBAGO 02-08-2012 AYSHA METCALF SARAH 10507 CONTUSION 02-08-2012 AYSHA METCALF OF [place] SARAH E9270 OVEREXERTIO 02-08-2012 AYSHA METCALF N [facility] STRENUOUS MOVEMENT 82757 NAUSEA WITH 03-15-2011 [facility] 9779 POISONING 03-15-2011 [facility] UNSPECIFIED [facility] DRUG/MEDICI SERV NAL SUBSTANCE 50999 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 [facility] LUMBAR/LUMB H SLEEP AND [...] 2- 9- 00 IN 88 Y ve NM 05 20 20 GT 4 SA AM [...] DR D MG UG TA BL ET NM 37 06 06 0 14 14 CA [...] 2- 5- 00 IN 88 Y ve NM 05 20 20 GT 4 SA AM [...] 2- 1- 00 IN 88 Y ve NM 05 20 20 GT 4 SA AM [...] 2- 2- 00 IN 88 Y ve NM 05 20 20 GT 4 SA AM [...] Procedure DOS Code Location Performer Comment OPHTH 49840 [employer] [facility]ers MEDICAL 6 ANG ANG XM&EVAL COMPRE NEW PT 1/> VST US BREAST 93520 [place] ELIZAB[facility] UNI REAL 6 MEDICAL MARGARET TIME IMAGING WITH ASS IMAGE LIMITED DIAGNOSTI G0204 [place] ELIZABET C 6 MEDICAL MARGARET MAMMOGRAP IMAGING HY INCL ASS CAD WHEN PERF; BILAT COMPUTER- 41508 [place] ELIZABET AIDED 6 MEDICAL MARGARET DETECTION IMAGING DX ASS MAMMOGRAP HY COMPREHEN 54099 [facility] SIVE 6 Y Y METABOLIC [facility] PANEL BLOOD 26351 [facility] COUNT 6 Y Y COMPLETE [facility] AUTO&AUTO DIFRNTL WBC PROTHROMB 84155 [facility] IN TIME Y Y [facility] INFUSION J7030 [facility] NORMAL 6 Y Y [facility] SOLUTION [address] [place] [address] [facility] HEAD/BRAI 6 MEDICAL SUNI N W/O SERV CONTRAST FOUNDATIO MATERIAL N THROMBOPL 65303 [facility] ASTIN 6 Y Y TIME [facility] PARTIAL PLASMA/WH OLE BLOOD CRITICAL 99468 [facility] CARE 6 [facility] ILL/INJUR INC INC ED PATIENT INIT 30-74 MIN AMB A0427 [facility] SERVICE 6 AMBULANCE AMBULANCE ALS SERVICE SERVICE [place] [address] [facility]ONES HEAD/BRAI 6 [facility] N W/O INC INC CONTRAST MATERIAL THER 69119 [facility] PROPH/DX 6 [facility] NJX IV INC INC PUSH SINGLE/1S T SBST/DRUG TDAP 12214 [facility] VACCINE 7 6 [facility] YRS/> IM INC INC IM ADM 12240 [facility] PRQ ID 6 [facility] SUBQ/IM INC INC NJXS 1 VACCINE RADEX 36848 [place] TRUE BERNARDO HAND 6 MEDICAL MINIMUM 3 SERV VIEWS FOUNDATIO N THERAPEUT 31418 [facility] IC 6 [facility] INJECTION INC INC IV PUSH EACH NEW DRUG GLUC BLD 97167 [facility] J[facility]ES GLUC MNTR 6 [facility] HOS[facility] MEM [facility]OS[facility] DEV INC INC CLEARED FDA SPEC HOME USE GROUND A0425 [facility]ULANCE AMBULANCE PER SERVICE SERVICE STATUTE MILE RADEX 60242 [place] ELIZABET SHOULDER 4 MEDICAL MARGARET COMPLETE IMAGING MINIMUM 2 ASS VIEWS RADEX 18032 [place] ELIZABET SPINE 4 MEDICAL MARGARET CERVICAL IMAGING 4 OR 5 ASS VIEWS RADEX 91080 CHATTA CHATTA ELBOW 2 2 SHEYLA SHEYLA VIEWS SMR PRIM 50733 JACQUELIN ROPER SRC 2 REGIONAL REGIONAL GRAM/GIEM MEDICAL MEDICAL SA STAIN CJ CORONA BCT FUNGI/EVELYN L ARTHROCEN 87574 JACQUELIN ROPER TESIS 2 REGIONAL REGIONAL ASPIR&/IN MEDICAL MEDICAL J INTERM CJ CORONA JT/BURS W/O US CUL BACT 77903 JACQUELIN ROPER XCPT 2 REGIONAL REGIONAL URINE MEDICAL MEDICAL BLOOD/STO [facility] OL AEROBIC ISOL AMB A0427 [facility] SERVICE 1 Y CO Y CO ALS AMBULANCE AMBULANCE EMERGENCY SERV SERV TRANSPORT LEVEL 1 GROUND A0425 [facility] PER AMBULANCE AMBULANCE STATUTE SERV SERV MILE FLUOR 09542 CINDY VALERA II NEEDLE/CA 1 LTH SLEEP KATIE TH AND REHA SPINE/PAR ASPINAL DX/THER ADDON NJX 12046 CINDY VALERA II DX/THER 1 LTH SLEEP KATIE SBST AND REHA EPIDURAL/ SUBARACH LUMBAR/SA CRAL MODERATE 79669 CINDY VALERA II SEDATJ 1 LTH SLEEP KATIE SAME AND REHA PHYS/QHP 5/>YRS INIT 30 MIN Encounters Encounter Start End Date Code Location Performer Type Date OFFICE 13297 [facility] ANGEL OUTPATIEN 6 6 PHYSICIAN GELACIO T VISIT S GROUP 10 MINUTES OFFICE 82127 [facility] SHASHA OUTPATIEN 6 6 PHYSICIAN CAM T NEW 30 S GROUP MINUTES OFFICE 89222 [facility] YMMALLY OUTPATIEN 6 6 PHYSICIAN EUG T VISIT S GROUP 15 [facility] UNIVERSIT - 6 6 [facility] 78619 [facility] OF BIA T [place] [facility]OS[facility] OFFICE 20863 [facility] 6 6 Y T VISIT 5 [facility] UNIVERSIT - 6 6 Y [facility] T EMER[facility]ENC[facility] 98019 [place] ECKERLINE 6 6 MEDICAL JR [facility] DEPARTMEN SERV T VISIT FOUNDATIO HIGH/URGE N NT SEVERITY EMERGENCY 83030 UN[facility]ERS[facility] DEPT 6 6 Y VISIT HOSPITAL HIGH SEVERITY& THREAT FUNCJ OFFICE 68202 [facility] SANDRA DORADO OUTPATIEN 6 6 PHYSICIAN T VISIT S GROUP 25 MINUTES [facility] ROBERT - 6 6 MEM HOSP OUTPATIEN INC T EMERGENCY 15939 [facility]ENN[facility] CRAIN DEPT 6 6 PHYSICIAN FOR VISIT S, PLL HIGH SEVERITY& THREAT FUNJ EMERGENCY 54374 [facility] 4 4 FELIPE GELACIO DEPARTMEN EMERGENCY T VISIT PHYS HIGH/URGE NT SEVERITY HOSPITAL [facility] - 4 4 MEM H[facility] OUTPATIEN INC T EMERGENCY 65805 [facility] 4 4 [facility] H[facility] DEPARTMEN INC T VISIT LOW/MODER SEVERITY HOSPITAL [facility] - 4 4 [facility] OUTPATIEN INC T EMERGENCY 29260 [facility] 4 4 [facility] MODERATE SEVERITY EMERGENCY 14322 [facility] 4 4 [facility] DEPARTMEN INC T VISIT LOW/MODER SEVERITY OFFICE 85781 ARTURO MORRIS OUTPATIEN 2 2 SHEYLA SHEYLA T NEW 30 MINUTES [facility] JACQUELIN - 2 2 [facility] EMERGENCY 34416 JACQUELIN 2 2 [facility] MEDICAL T VISIT CENTE MODERATE SEVERITY EMERGENCY 10320 AYSHA OLMSTEAD JR 2 2 [facility] T VISIT HIGH/URGE NT SEVERITY OFFICE 54142 CINDY VALERA II OUTPATIEN 1 1 [place] SLEEP KATIE T VISIT AND REHA 10 MINUTES OFFICE 47368 CINDY VALERA II OUTPATIEN 1 1 [place] SLEEP KATIE T VISIT AND REHA 10 MINUTES
--- OUTSIDE RECORDS SUMMARY | 2017-07-19 18:10 | External Medical Summary Rpt | CCD ---
Author Author , YANA Organization YANA Address Unknown Phone [email or web address] Care Team Providers Care Furniture And Bedding Inspector Name Role Phone [facility] Unavailable Unavailable SERVICE, [facility] Unavailable Unavailable SERVICE, [facility], Unavailable Unavailable [facility] CHATTA SHEYLA, CHATTA Unavailable Unavailable SHEYLA CHATTA SHEYLA, CHATTA Unavailable Unavailable SHEYLA [facility] Un[facility], [facility] Unavailable Unavailable AND REHA, [facility] ELIZABET MARGARET, Unavailable Unavailable ELIZABET MARGARET ECKERLINE SUNI, Unavailable Unavailable ECKERLINE JR SUNI FRYMAN EUG, FRYMAN Unavailable Unavailable EUG ANGEL GELACIO, ANGEL Unavailable Unavailable GELACIO [facility] Unavailable Unavailable INC, [facility], Unavailable Unavailable [facility] TAVERAS Unavailable Unavailable [facility] Unavailable Unavailable RENZO MORAIMA II KATIE, MORAIMA Unavailable Unavailable II KATIE [facility] Unavailable Unavailable [facility], [facility] Unavailable Unavailable [facility], [facility] Unavailable Unavailable AMBULANCE SERV, [facility] Unavailable Unavailable AMBULANCE SERV, [facility] AYSHA SANTOS JR Unavailable Unavailable AYSHA DONG JR Unavailable Unavailable JR SMITH [facility], Unavailable Unavailable [facility], Unavailable Unavailable PLLC, [facility] CHERYL BIA, CHERYL Unavailable Unavailable BIA SCHULSTAD CAM, Unavailable Unavailable SCHULSTAD CAM SCIFRES ANG, SCIFRES Unavailable Unavailable ANG SCIFRES ANG, SCIFRES Unavailable Unavailable [facility]G [facility]available [facility] STONE ESTRADA, STONE ESTRADA Unavailable Unavailable TRUE BERNARDO, TRUE BERNARDO Unavailable Unavailable [facility], Unavailable [facility]available [facility] Unavailable [facility] KINA SUNI, KINA Unavailable Unavailable SUNI [facility] # Unavailable Unavailable [id number], [facility] # [id number] WALKER FOR, WALKER Unavailable Unavailable FOR Purpose Continuity of Care Document - 11-23-2010 through 2016 Problems Code Diagnosis DOS Provider Status [id number] REGULAR 06-03-2016 SCIFRCHINMAY ANG ASTIGMATISM BILATERAL H524 PRESBYOPIA 06-03-2016 [facility]MA[facility] ANG M545 LOW BACK 01-18-2016 [facility] PAIN PHYSIC[facility]ANS GROUP N62 HYPERTROPHY 12-15-2015 [facility] N63 UNSPECIFIED 12-09-2015 [facility] N644 MASTODYNIA 12-09-2015 [facility] [id number] OTH FX BASE 11-05-2015 [facility] SUBSQT ENC FX ROUTINE HEALING M62275Y CONTUS LAC 11-05-2015 [facility] CERE[facility]UM HOSPI LOC UNS DUR INIT J1952QI OTH 10-07-2015 [facility] SKULL INIT ENC CLOSED FRACTURE M2014AK UNS 10-07-2015 [facility] SKULL FOUNDATION INITIAL ENC FOR CLOS FRACTURE [id number] TRAUMATIC 10-07-2015 [facility] HEMORRHAGE W/O LOC INITIAL V8370QF UNS OCC OTH 10-07-2015 [facility] MV INJ NT ACC INIT Z720 TOBACCO USE 10-07-2015 [facility] F6859HQ ABRASION 2015 [facility] OTHER PART PHYSICIANS OF HEAD GROUP INITIAL ENCOUNTER Q048F3V CONCUSSION 2015 [facility] W/LOC UNS PHYSICIANS DURATION GROUP INITIAL ENCOUNTER G8911 ACUTE PAIN 10-02-2015 [facility] DUE TO [facility]BULANCE TRAUMA SERVICE I6200 NONTRAUMATI 10-02-2015 [facility] HEMORRHAGE SERVICE UNSPECIFIED B09212 PAIN IN 10-02-2015 [facility] M7989 OTHER 10-02-2015 [facility] SPECIFIED SERV SOFT TISSUE FOUNDATION DISORDERS R51 HEADACHE 10-02-2015 [facility] [id number] FRACTURE 10-02-2015 [facility] INITIAL IMAGING ASS ENC CLOS FRACTURE V60025Z TRAUMAT 10-02-2015 [facility], [facility]ERE[facility] UNS PLLC W/O LOC INITIAL I119N7L TRAUMATIC 10-02-2015 [facility] HEMORR INC W/LOC 30 MIN/LESS INIT H808E1X TRAUMATIC 10-02-2015 [facility] W/LOC UNS DUR INIT Z23 ENCOUNTER 10-02-2015 [facility] IMMUNIZATIO INC N 62286 PAIN IN 06-03-2014 [facility]INT, N EMERGENCY SHOULDER PHYS REGION 45438 UNSPEC 06-03-2014 [facility] DISORDERS N EMERGENCY BURSAE&TEND PHYS ONS SHOULDER REGION 7231 CERVICALGIA 04-07-2014 [facility] 7235 TORTICOLLIS 04-07-2014 JARAMILLO RENZO , UNSPECIFIED 8470 NECK SPRAIN 04-07-2014 [facility] INC 00017 OLECRANON 02-28-2012 CHATTA SHEYLA BURSITIS 7242 LUMBAGO 02-08-2012 AYSHA METCALF [facility] 63615 CONTUSION 02-08-2012 AYSHA METCALF [facility] [place] SAR[place] E9270 OVEREXERTIO 02-08-2012 AYSHA METCALF N FROM [facility] STRENUOUS MOVEMENT 14243 NAUSEA WITH 03-15-2011 [facility] 9779 POISONING 03-15-2011 M[facility]ISSA UNSPECIFIED CO AMBULANCE DRUG/MEDICI SERV NAL SUBSTANCE 91684 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 [facility] LUMBAR/LUMB H SLEEP AND [...] 2- 9- 00 IN 88 Y ve WY 05 20 20 GT 4 SA AM [...] DR D MG UG TA BL ET WY 37 06 06 0 14 14 CA [...] 2- 5- 00 IN 88 Y ve WY 05 20 20 GT 4 SA AM [...] 2- 1- 00 IN 88 Y ve WY 05 20 20 GT 4 SA AM [...] 2- 2- 00 IN 88 Y ve WY 05 20 20 GT 4 SA AM [...] Procedure DOS Code Location Performer Comment OPH 51572 [facility] MEDICAL 6 ANG ANG XM&EVAL COMPRE NEW PT 1/> VST BREAST 09255 [facility] [employer] UNI REAL 6 MEDICAL MARGARET TIME IMAGING WITH ASS IMAGE LIMITED COMPUTER- 34877 [facility] EL[facility]ABET AIDED 6 MEDICAL MARGARET DETECTION IMAGING DX ASS MAMMOGRAP HY DIAGNOSTI G0204 [facility] C 6 MEDICAL MARGARET MAMMOGRAP IMAGING HY INCL ASS CAD WHEN PERF; BILAT INFUSION J7030 [facility] NORMAL 6 Y Y [facility] SOLUTION 1000 CC BLOOD 90353 [facility] COUNT 6 Y Y COMPLETE [facility] AUTO&AUTO DIFRNTL WBC COMPREHEN 51289 [facility] SIVE Y Y [facility] PANEL PROTHROMB 79324 [facility] IN TIME Y Y [facility] THROMBOPL 47749 [facility] ASTIN 6 Y Y TIME [facility] PARTIAL PLASMA/[place] [address] PARESH CASTANON HEAD/BRAI 6 MEDICAL SUNI N W/[place] [address] [facility] HEAD/BRAI 6 [facility] N W/O INC INC CONTRAST MATERIAL CRITICAL 61877 [facility] CARE 6 [facility] ILL/INJUR INC INC ED PATIENT INIT 30-74 MIN THER 17468 [facility] PROPH/DX 6 [facility] NJX IV INC INC PUSH SINGLE/1S T SBST/DRUG IM ADM 27731 [facility] PRQ ID 6 [facility] SUBQ/IM INC INC NJXS 1 VACCINE RADEX 43525 [place] TRUE BERNARDO HAND 6 MEDICAL MINIMUM 3 SERV VIEWS FOUNDATIO N TDAP 28836 [facility] VACCINE 7 6 [facility] YRS/> IM INC INC GLUC BLD 38127 [facility] JONES GLUC MNTR 6 [facility] DEV INC INC CLEARED FDA SPEC HOME USE AMB A0427 [facility] 6 AMBULANCE AMBULANCE ALS SERVICE SERVICE EMERGENCY TRANSPORT LEVEL 1 GROUND A0425 [facility] AMBULANCE PER SERVICE SERVICE STATUTE MILE THERAPEUT 17687 [facility] JONES IC 6 [facility] INJECTION INC INC IV PUSH EACH NEW DRUG RADEX 70218 [facility] ELIZABET SHOULDER 4 MEDICAL MARGARET COMPLETE IMAGING MINIMUM 2 ASS VIEWS RADEX 42555 [facility] ELIZABET SPINE 4 MEDICAL MARGARET CERVICAL IMAGING 4 OR 5 ASS VIEWS RADEX 34278 CHATTA CHATTA ELBOW 2 2 SHEYLA SHEYLA VIEWS SMR PRIM 90385 JACQUELIN ROPER SRC 2 REGIONAL REGIONAL GRAM/GIEM MEDICAL MEDICAL SA STAIN [facility] BCT FUNGI/EVELYN L CUL BACT 98937 JACQUELIN ROPER XCPT 2 REGIONAL REGIONAL URINE MEDICAL MEDICAL BLOOD/STO [facility] OL AEROBIC ISOL ARTHROCEN 63587 JACQUELIN ROPER TESIS 2 REGIONAL REGIONAL ASPIR&/IN MEDICAL MEDICAL J INTERM [facility] JT/BURS W/O US AMB A0427 [facility] SERVICE 1 Y CO Y CO ALS AMBULANCE AMBULANCE EMERGENCY SERV SERV TRANSPORT LEVEL 1 GROUND A0425 [facility] SYSTEM[facility] 1 Y CO Y CO PER AMBULANCE AMBULANCE STATUTE SERV SERV MILE FLUOR 69975 CINDY VALERA II NEEDLE/CA 1 LTH SLEEP KATIE TH AND REHA SPINE/PAR ASPINAL DX/THER ADDON NJX 44496 CINDY VALERA II DX/THER 1 LTH SLEEP KATIE SBST AND REHA EPIDURAL/ SUBARACH LUMBAR/SA CRAL MODERATE 02576 CINDY VALERA II SEDATJ 1 LTH SLEEP KATIE SAME AND REHA PHYS/QHP 5/>YRS INIT 30 MIN Encounters Encounter Start End Date Code Location Performer Type Date OFFICE 62552 [facility] ANGEL OUTPATIEN 6 6 PHYSICIAN GELACIO T VISIT S GROUP 10 MINUTES OFFICE 57084 [facility] SHASHA OUTPATIEN 6 6 PHYSICIAN CAM T NEW 30 S GROUP MINUTES OFFICE 10992 [facility] JAIME OUTPATIEN 6 6 PHYSICIAN EUG T VISIT S GROUP 15 MINUTES [facility]ICE 40575 [facility] Y OF BIA T NEW 30 [facility] MINUTES [facility] UNIVERSIT - 6 6 Y [facility] T OFFICE 63509 [facility] 6 6 Y T VISIT 5 HOSPITAL MINUTES EMERGENCY 25922 [place] ECKERLINE 6 6 [facility] DEPARTMEN SERV T VISIT FOUNDATIO HIGH/URGE N NT SEVERITY EMERGENCY 92250 [facility] DEPT 6 6 Y VISIT HOSPITAL HIGH SEVERITY& THREAT [facility] UNIVERSIT - 6 6 [facility] T OFF[facility] 26455 [facility] SANDRA DORADO OUTPATIEN 6 6 PHYSICIAN T VISIT S GROUP 25 MINUTES EMERGENCY 70591 JENNIFER CRAIN DEPT 6 6 PHYSICIAN FOR VISIT S, [facility] HIGH SEVERITY& THREAT [facility] ROBERT - 6 6 MEM HOS[facility] OUTPATIEN INC T EMERGENCY 22842 [facility] 4 4 FELIPE GELACIO DEPARTMEN EMERGENCY T VISIT PHYS HIGH/URGE NT SEVERITY [facility]OSP[facility] - 4 4 [facility] OUTPATIEN INC T EMERGENCY 34499 [facility] 4 4 [facility] DEPARTMEN INC T VISIT LOW/MODER SEVERITY EMERGENCY 11746 [facility] 4 4 [facility] DEPART[facility] INC T VISIT LOW/MODER SEVERITY EMERGENCY 85384 CLINT JARAMILLO 4 4 [facility] MODERATE SEVERITY [facility] ROBERT - 4 4 [facility] OUTPATIEN [facility] T OFFICE 96647 [facility]OR[facility] 2 SHEYLA SHEYLA T NEW 30 MINUTES EMERGENCY [address] [facility] MEDICAL T VISIT [facility]VERITY [facility] JACQUELIN Casillas 2 2 [facility] EMERGENCY 86307 AYSHA OLMSTEAD JR 2 2 [facility] T VISIT HIGH/URGE NT SEVERITY OFFICE 00771 CINDY VALERA II OUTPATIEN 1 1 [facility] T VISIT AND REHA 10 MINUTES OFFICE [id number] CINDY VALERA II OUTPATIEN 1 1 LT SLEEP [facility]AT[facility] T VISIT AND REHA 10 MINUTES
--- OUTSIDE RECORDS SUMMARY | 2017-07-19 18:10 | External Medical Summary Rpt | CCD ---
Author Author , YANA Organization YANA Address Unknown Phone [email or web address] Care Team Providers Care Pass Worker Name Role Phone [facility] Unavailable Unavailable SERVICE, [facility] Unavailable Unavailable SERVICE, [facility], Unavailable Unavailable [facility] CHATTA SHEYLA, CHATTA Unavailable Unavailable SHEYLA CHATTA SHEYLA, CHATTA Unavailable Unavailable SHEYLA [facility] Unavailable [facility], [facility] Unavailable Unavailable AND REHA, [facility] REHA ELIZABET MARGARET, Unavailable Unavailable ELIZABET MARGARET ECKERLINE SUNI, Unavailable Unavailable ECKERLINE JR SUNI FRYMAN EUG, FRYMAN Unavailable Unavailable EUG ANGEL GELACIO, ANGEL Unavailable Unavailable GELACIO [facility] Unavailable Un[facility], [facility], Unavailable Unavailable [facility] Unavailable Unavailable [facility] Unavailable Unavailable RENZO MORAIMA II KATIE, MORAIMA Unavailable Unavailable II KATIE [facility] Unavailable Unavailable [facility], [facility], [facility] Unavailable Unavailable AM[facility]ULANCE SERV, [facility] Unavailable Unavailable AMBULANCE SERV, [facility] AYSHA SANTOS JR Unavailable Unavailable AYSHA DONG JR Unavailable Unavailable JR SMITH [facility], Unavailable Unavailable [facility], Unavailable Unavailable PLL[facility], [facility] CHERYL BIA, CHERYL Unavailable Unavailable BIA SCHULSTAD CAM, Unavailable Unavailable [facility] SCIFRES ANG, SCIFRES Unavailable Unavailable ANG SCIFRES ANG, SCIFRES Unavailable Unavailable [facility] STONE ESTRADA, STONE ESTRADA Unavailable Unavailable TRUE BERNARDO, TRUE BERNARDO Unavailable Unavailable [facility], Unavailable Unavailable [facility][1] Unavailable [facility] KINA SUNI, KINA Unavailable Unavailable SUNI [facility] # Unavailable Unavailable [id number], [facility] # [id number] WALKER FOR, WALKER Unavailable Unavailable FOR Purpose Continuity of Care Document - 11-23-2010 through 2016 Problems Code Diagnosis DOS Provider Status [id number] REGULAR 06-03-2016 SCIFRCHINMAY ANG ASTIGMATISM BILATERAL H524 PRESBYOPIA 06-03-2016 SCIFR[facility]MA[facility] ANG M545 LOW BACK 01-18-2016 [facility] PAIN [facility] N62 HYPERTROPHY 12-15-2015 [facility] OF BREAST [facility] N63 UNSPECIFIED 12-09-2015 [facility] N644 MASTODYNIA 12-09-2015 [facility] [id number] OTH FX BASE 11-05-2015 [facility] SUBSQT ENC FX ROUTINE HEALING [id number] CONTUS LAC 11-05-2015 [facility] LOC UNS DUR INIT A5842MC OTH 10-07-2015 [facility] SKULL INIT ENC CLOSED FRACTURE [id number] UNS 10-07-2015 [facility] INITIAL ENC FOR CLOS FRACTURE [id number] TRAUMATIC 10-07-2015 [facility] HEMORRHAGE W/O LOC INITIAL C0952IZ UNS OCC OTH 10-07-2015 [facility] [facility] [facility] MV INJ NT ACC INIT Z720 TOBACCO USE 10-07-2015 [facility] Q4370SH ABRASION 2015 [facility] OTHER PART PHYSICIANS OF HEAD GROUP INITIAL ENCOUNTER [id number] CONCUSSION 2015 [facility] W/LOC UNS PHYSICIANS DURATION GROUP INITIAL ENCOUNTER G8911 ACUTE PAIN 10-02-2015 [facility] DUE TO [facility] TRAUMA SERVICE I6200 NONTRAUMATI 10-02-2015 [facility] HEMORRHAGE SERVICE UNSPECIFIED R60942 PAIN IN 10-02-2015 [facility] LEFT HAND [facility] M7989 OTHER 10-02-2015 [place] [facility] SPECIFIED SERV SOFT TISSUE FOUNDATION DISORDERS R51 HEADACHE 10-02-2015 [facility] [id number] FRACTURE 10-02-2015 [facility] [facility] INITIAL IM[facility]ING ASS ENC CLOS FRACTURE Q57074A TRAUMAT 10-02-2015 [facility], [facility] UNS PLLC W/O LOC INITIAL N848V4Z TRAUMATIC 10-02-2015 [facility]EM[facility] W/LOC 30 MIN/LESS INIT [id number] TRAUMATIC 10-02-2015 [facility] W/LOC UNS DUR INIT Z23 ENCOUNTER 10-02-2015 [facility] [place]MM[place]IZAT[place] INC N 88683 PAIN IN 06-03-2014 [facility] JOINT, N EMERGENCY SHOULDER PHYS REGION 68236 UNSPEC 06-03-2014 [facility] DISORDERS N EMERGENCY BURSAE&TEND PHYS ONS SHOULDER REGION 7231 CERVICALGIA 04-07-2014 [facility] 7235 TORTICOLLIS 04-07-2014 JARAMILLO RENZO , UNSPECIFIED 8470 NECK SPRAIN 04-07-2014 [facility] 16198 OLECRANON 02-28-2012 CHATTA SHEYLA BURSITIS 7242 LUMBAGO 02-08-2012 AYSHA METCALF [facility] 06144 CONTUSION 02-08-2012 AYSHA METCALF OF [place] E9270 OVEREXERTIO 02-08-2012 AYSHA METCALF N FROM [facility] SUDDEN STRENUOUS MOVEMENT 70259 NAUSEA WITH 03-15-2011 [facility] 9779 POISONING 03-15-2011 [facility] UNSPECIFIED [facility] DRUG/MEDICI SERV NAL SUBSTANCE 21841 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 [facility] LUMBAR/LUMB H SLEEP AND [...] 2- 9- 00 IN 88 Y ve WI 05 20 20 GT 4 SA AM [...] DR D MG UG TA BL ET WI 37 06 06 0 14 14 CA [...] 2- 5- 00 IN 88 Y ve WI 05 20 20 GT 4 SA AM [...] 2- 1- 00 IN 88 Y ve WI 05 20 20 GT 4 SA AM [...] 2- 2- 00 IN 88 Y ve WI 05 20 20 GT 4 SA AM [...] Procedure DOS Code [facility] Performer [facility] [address] [facility] 6 ANG ANG XM&EVAL COMPRE NEW PT 1/> VST BREAST 74954 [place] [employer] UNI REAL 6 MEDICAL MARGARET TIME IMAGING WITH ASS IMAGE LIMITED COMPUTER- 85657 [place] ELIZABET AIDED 6 MEDICAL MARGARET DETECTION IMAGING DX ASS MAMMOGRAP HY DIAGNOSTI G0204 [place] ELIZABET C 6 MEDICAL MARGARET MAMMOGRAP IMAGING HY INCL ASS CAD WHEN PERF; BILAT INFUSION J7030 [facility] NORMAL 6 Y Y SALINE [facility] SOLUTION 1000 CC BLOOD 07581 [facility] COUNT 6 Y Y COMPLETE [facility] AUTO&AUTO DIFRNTL WBC COMPREHEN 66909 [facility] SIVE Y Y [facility] PANEL PROTHROMB 63180 [facility] IN TIME Y Y [facility] THROMBOPL 19222 [facility] ASTIN 6 Y Y TIME [facility] PARTIAL PLASMA/[place] [address] PARESH CASTANON HEAD/BRAI 6 MEDICAL SUNI N W/[place] [address] [facility] HEAD/BRAI 6 [facility] N W/O INC INC CONTRAST MATERIAL CRITICAL 39181 [facility] CARE 6 [facility] ILL/INJUR INC INC ED PATIENT INIT 30-74 MIN THER 42975 [facility] PROPH/DX 6 [facility] NJX IV INC INC PUSH SINGLE/1S T SBST/DRUG IM ADM 40139 [facility] PRQ ID 6 [facility] SUBQ/IM INC INC NJXS 1 VACCINE RADEX 63681 [place] TRUE BERNARDO HAND 6 MEDICAL MINIMUM 3 SERV VIEWS FOUNDATIO N TDAP 46209 [facility] VACCINE 7 6 [facility] YRS/> IM INC INC GLUC BLD 38498 [facility] GLUC MNTR 6 [facility] DEV INC INC CLEARED FDA SPEC HOME USE AMB A0427 [facility] SERVICE 6 AMBULANCE AMBULANCE ALS SERVICE SERVICE EMERGENCY TRANSPORT LEVEL 1 GROUND A0425 [facility]UL[facility] PER SERVICE SERVICE STATUTE MILE THERAPEUT 88206 [facility] IC 6 [facility] INJECTION INC INC IV PUSH EACH NEW DRUG RADEX 56009 [facility] ELIZABET SHOULDER 4 MEDICAL MARGARET COMPLETE IMAGING MINIMUM 2 ASS VIEWS RADEX 55762 [place] ELIZ[place] SPINE 4 MEDICAL MARGARET CERVICAL IMAGING 4 OR 5 ASS VIEWS RADEX 69158 CHATTA CHATTA ELBOW 2 2 SHEYLA SHEYLA VIEWS SMR PRIM 47291 JACQUELIN ROPER SRC 2 REGIONAL REGIONAL GRAM/GIEM MEDICAL MEDICAL SA STAIN [facility] BCT FUNGI/EVELYN L CUL BACT 54210 JACQUELIN ROPER XCPT 2 REGIONAL REGIONAL URINE MEDICAL MEDICAL BLOOD/STO [facility] OL AEROBIC ISOL ARTHROCEN 17955 JACQUELIN ROPER TESIS 2 REGIONAL REGIONAL ASPIR&/IN MEDICAL MEDICAL J INTERM [facility] JT/BURS W/O US AMB A0427 [facility] SERVICE 1 Y CO Y CO ALS AMBULANCE AMBULANCE EMERGENCY SERV SERV TRANSPORT LEVEL 1 GROUND A0425 [facility] Y CO Y CO PER AMBULANCE AMBULANCE STATUTE SERV SERV MILE FLUOR 10182 CINDY VALERA II NEEDLE/CA 1 LTH SLEEP KATIE TH AND REHA SPINE/PAR ASPINAL DX/THER ADDON NJX 10982 CINDY VALERA II DX/THER 1 LTH SLEEP KATIE SBST AND REHA EPIDURAL/ SUBARACH LUMBAR/SA CRAL MODERATE 09941 CINDY VALERA II SEDATJ 1 LTH SLEEP KATIE SAME AND REHA PHYS/QHP 5/>YRS INIT 30 MIN Encounters Encounter Start End Date Code Location Performer Type Date OFFICE 28752 [facility] ANGEL OUTPATIEN 6 6 PHYSICIAN GELACIO T VISIT S GROUP 10 MINUTES OFFICE 20309 [facility] SHASHA OUTPATIEN 6 6 PHYSICIAN CAM T NEW 30 S GROUP MINUTES OFFICE 55658 [facility] JAIME OUTPATIEN 6 6 PHYSICIAN EUG T VISIT S GROUP 15 MINUTES OFFICE 47925 [facility] 6 6 Y OF BIA T NEW 30 [place] MINUTES [facility] HOSPITAL UNIVERSIT - 6 6 Y [facility] 6 6 Y T VISIT 5 HOSPITAL MINUTES EMERGENCY 42547 [place] ECKERLINE 6 6 MEDICAL JR [facility] DEPARTMEN SERV T VISIT FOUNDATIO HIGH/URGE N NT SEVERITY EMERGENCY 50827 [facility] DEPT 6 6 Y VISIT HOSPITAL HIGH SEVERITY& THREAT [facility] UNIVERSIT - 6 6 [facility] T OFF[facility] 18586 [facility] SANDRA DORADO OUTPATIEN 6 6 PHYSICIAN T VISIT S GROUP 25 MINUTES EMERGENCY 48090 [facility] CRAIN DEPT 6 6 PHYSICIAN FOR VISIT S, [facility] HIGH SEVERITY& THREAT [facility]ERT - 6 6 [facility] OUTPATIEN INC T EMERGENCY 34789 [facility] 4 4 FELIPE GELACIO DEPARTMEN EMERGENCY T VISIT PHYS HIGH/URGE NT SEVERITY HOSPITAL [facility] - 4 4 [facility] OUTPATIEN INC T EMERGENCY 49249 [facility] 4 4 [facility] DEPARTMEN INC T VISIT LOW/MODER SEVERITY EMERGENCY 00866 [facility] 4 4 [facility] DEPARTMEN INC T VISIT LOW/MODER SEVERITY EMERGENCY 66088 [facility] JARAMILLO 4 4 [facility]ZO [facility] VISIT MODERATE SEVERITY HOSPITAL [facility] - 4 4 [facility] OUTPATIEN [facility] T OFFICE 55973 [facility] M[facility]IS [facility] SHEYLA SHYELA T NEW 30 MINUTES EMERGENCY 37272 JACQUELIN 2 2 [facility] T VISIT [facility]VERITY [facility] JACQUELIN Casillas 2 2 [facility] EMERGENCY 18637 AYSHA OLMSTEAD JR 2 2 [facility] T VISIT HIGH/URGE NT SEVERITY OFFICE 37796 CINDY VALERA II OUTPATIEN 1 1 [facility] SLEEP KATIE T VISIT AND REHA 10 MINUTES OFFICE 15796 CINDY VALERA II OUTPATIEN 1 1 LT SLEEP KATIE T VISIT AND REHA 10 MINUTES
--- OUTSIDE RECORDS SUMMARY | 2017-07-19 18:11 | External Medical Summary Rpt | CCD ---
Demographics Preferred Language Iranian Marital Status Unknown Alevism Affiliation Unknown Race Unknown Ethnic Group Unknown Author Author , YANA MILLAN Address Unknown Phone Immunization No patient found.
--- OUTSIDE RECORDS SUMMARY | 2017-07-19 18:11 | External Medical Summary Rpt | CCD ---
Demographics Preferred Language Finnish Marital Status Unknown Baptist Affiliation Unknown Race Unknown Ethnic Group Unknown Author Author , YANA MILLAN Address Unknown Phone Immunization No patient found.
[2017-07-19] MEDS ORDERED: AMARYL 2MG TABLE2 MG PO (18:57)
[2017-07-19] MEDS ORDERED: METFORMIN 500M500 M1 PO (18:57)
[2017-07-19 19:04] VITALS: BP 140/88
== END 2017-07-19 19:05 | disposition left against medical advice (07) ==
LOC: ER 17:03 → 2ND 18:05 → ER 18:05
PROVIDERS: Emergency Medicine
DX: E11.65 Type 2 diabetes mellitus with hyperglycemia (principal); R79.89 Other specified abnormal findings of blood chemistry; Z53.21 Procedure and treatment not carried out due to patient leaving prior to being seen by health care provider